=== PATIENT | female | born 1950 | race Asian ===

== ENCOUNTER 2017-03-06 08:45 | Day surgery (SDC) | payer OTHER ==
[2017-03-05 17:53] VITALS: BMI 30.2
[~2017-03-06] VITALS: Ht 157.5 cm; Wt 73.0 kg
[2017-03-06] VITALS (8 sets, daily range): BP systolic 80–165; BP diastolic 45–83; PULSE 56–86; RESP 14–24; Ht 157.5 cm; Wt 73.0 kg
--- NOTE | 2017-03-06 07:59 | HP ---
DATE OF ADMISSION: 03/06/2017 HISTORY OF PRESENT ILLNESS: This 66-year-old patient is admitted for elective cataract surgery of t he right eye. The patient has had progressive deterioration of vision in that eye over the past few years. The patient has a prior history of diabetic retinopathy treated with laser therapy while in the [facility]. The patient denies other history of eye disease or injury. The patient also has a history of systemic hypertension and hypercholesterolemia. CURRENT MEDICATIONS: Include 1. Gabapentin. 2. Glipizide. 3. Allopurinol. 4. Aspirin. 5. Carvedilol. 6. Atorvastatin. 7. Januvia. 7. Losartan. The aspirin was discontinued 1 week prior to surgery. ALLERGIES: THERE ARE NO KNOWN ALLERGIES. PHYSICAL EXAMINATION: Visual acuity with best correction is 20/60 in the right eye and 20/50 in the left eye. Slit lamp examination reveals anterior cortical and nuclear sclerotic cataracts present in both eyes. Applanation tonometry is 12 mmHg. Examination of the retina reveals background diabe tic retinopathy and evidence of prior peripheral retinal laser therapy. DIAGNOSIS: Cataract, right eye. PLAN: Cataract extraction with lens implant, right eye. The risks and alternatives to the surgery have been discussed with the patient as well as the hope for improvement of visual acuity leading to greater ability to perform activities of daily living. The patient understands this and agrees to proceed with the surgery. Dictated By: SWETA CRESPO/CHANTAL Conf#: [id number] DID#: [id number]
[~2017-03-06 08:45] MED LIST: AMIT25TA9 PO; ATOR40TA68 PO; CARV6.25 PO; GABA300C PO; GLIP-95 PO; LOSA50TA6 PO; MELO-110 PO; SITA50TA2 PO
[2017-03-06] MEDS ORDERED: TROPICAMIDE 1% 2 ML OPH RIGHT EYE SCH (09:30)
[2017-03-06] MEDS ORDERED: CYCLOPENTOLATE/PHENYLEPH 2 ML OPH RIGHT EYE SCH (09:30)
[2017-03-06] MEDS ORDERED: DICLOFENAC 0.1% 2.5 ML OPH RIGHT EYE SCH (09:30)
[2017-03-06] MEDS ORDERED: CIPROFLOXACIN 0.3% 2.5 ML OPH RIGHT EYE SCH (09:30)
[2017-03-06] MEDS ORDERED: ATOR20TA38 PO (09:36)
[2017-03-06] MEDS ORDERED: LOSA100T7 PO (09:36)
[2017-03-06] MEDS ORDERED: ASPI81TA3 PO (09:37)
[2017-03-06] MEDS ORDERED: ALLO100T PO (09:37)
[2017-03-06] MEDS ORDERED: SITA100T8 PO (09:37)
[2017-03-06] MEDS ORDERED: MECL-77 PO (09:38)
[2017-03-06] MEDS ORDERED: GABA400C14 PO (09:38)
[2017-03-06] MEDS ORDERED: CEFAZOLIN 1 GM INJ ONE (10:14)
[2017-03-06] MEDS ORDERED: LIDOCAINE 4% (MPF) 5 ML INJ ONE (10:14)
[2017-03-06] MEDS ORDERED: DEXAMETHASONE 4 MG/ML 1 ML INJ ONE (10:15)
[2017-03-06] MEDS ORDERED: EPINEPHrine 1 MG INJ ONE (10:15)
[2017-03-06] MEDS ORDERED: GENTAMICIN 80 MG INJ ONE (10:15)
[2017-03-06] MEDS ORDERED: CARBACHOL 0.01% 1.5 ML OPH INJ ONE ×2 (10:15→12:14)
[2017-03-06] MEDS ORDERED: HYALURONATE/CHONDROITIN 1ML OPH INJ ONE (10:16)
[2017-03-06] MEDS ORDERED: PROPOFOL 20 ML ONE (11:28)
[2017-03-06] MEDS ORDERED: MIDAZOLAM 1 MG/ML 2 ML INJ IV PRN (11:30)
[2017-03-06] MEDS ORDERED: METOCLOPRAMIDE 10 MG INJ IV PRN (11:30)
[2017-03-06] MEDS ORDERED: MEPERIDINE 25 MG INJ IV PRN (11:30)
[2017-03-06] MEDS ORDERED: DIPHENHYDRAMINE 50 MG INJ IV PRN (11:30)
[2017-03-06] MEDS ORDERED: ONDANSETRON 4 MG INJ IV PRN (11:30)
[2017-03-06] MEDS ORDERED: FENTAnyl 50 MCG/ML VIAL IV PRN ×2 (11:30)
[2017-03-06] MEDS ORDERED: hydrALAzine 20 MG INJ ONE (11:53)
--- NOTE | 2017-03-06 12:46 | OPR ---
DATE OF OPERATION: 03/06/2017 PREOPERATIVE DIAGNOSIS: Cataract, right eye. POSTOPERATIVE DIAGNOSIS: Cataract, right eye. SURGEON: Sweta Harkins MD ANESTHESIA: Local standby. ANESTHESIOLOGIST: Dr. Loo OPERATION: Phacoemulsification with posterior chamber intraocular lens implant, right eye. PROCEDURE: The patient was brought to the operating room and placed on the table with an IV in plac e and the patient attached to an lap welder. Oxygen was given via face mask. After some intravenous sedation was administered, local anesthesia was given using Xylocaine 2% with epinephrine, mixed with Marcaine 0.5%. This was given in a lid block and retrobulbar injection. The patient was then prepped and draped in the usual sterile manner. A wire lid speculum was inserted between the lids of the right eye. A Superblade was used to enter t he anterior chamber at the corneoscleral limbus at the 10:30 o'clock position. A separate incision w as made using a 3.0-mm keratome which entered the corneoscleral junction at the 12 o'clock position. Through this 3-mm opening, an irrigating cystitome was introduced into the anterior chamber. The ch suhas was filled with Viscoat and an anterior capsulotomy was performed. Balanced salt solution was then used for hydrodissection of the lens. A phacoemulsification handpiece was then brought into th e field and introduced into the anterior chamber. The lens nucleus was emulsified using a deep groov e and cracking the nucleus into quadrants. Following this, each quadrant was aspirated and emulsifie d at the pupillary margin. After this was completed, the irrigation/aspiration handpiece was brought to the field, introduced i nto the posterior chamber, and the lens cortical material was removed. When this was completed, scooby tional Viscoat was injected into the anterior and posterior chambers. The 3-mm opening had its internal lips enlarged, and then the posterior chamber intraocular lens kelly suring 18.5 diopters ([employer] Model LI61AO) was then injected into the posterior chamber using the lens injector system. After the leading haptic was introduced into the capsular b ag and the lens optic was present in the center of the eye, the injector was removed and the trailin g haptic was grasped with non-toothed forceps and introduced into the capsular fold superiorly. A Si nskey hook was then used to rotate the intraocular lens so that the lips were oriented in the horizo ntal meridian. One 10-0 nylon suture was placed across the wound. Prior to tying, the irrigation/aspiration handpiece was reintroduced into the anterior chamber to re move the Viscoat. Miochol was instilled to constrict the pupil, and then the 10-0 nylon suture was t ied. The ends were cut short and then the knot was buried. Then, 0.5 mL of dexamethasone and 0.5 mL of Ancef were injected into the sub-Tenon space in the infe rior fornix. Ciloxan drops were then placed on the surface of the eye. The speculum was removed and a patch was applied. The patient then left the operating room in satisfactory condition. Dictated By: SWETA CRESPO/CHANTAL Conf#: [id number] DID#: [id number]
== END 2017-03-06 17:38 | disposition home or self-care (01) ==
LOC: SDS 08:45
PROVIDERS: ATTEND Ophthalmology
DX: H25.11 Age-related nuclear cataract, right eye (principal); I10 Essential (primary) hypertension; E11.9 Type 2 diabetes mellitus without complications; E78.5 Hyperlipidemia, unspecified; E66.9 Obesity, unspecified; Z68.29 Body mass index [BMI] 29.0-29.9, adult
CPT/HCPCS: 66984; 82962; J0171; J0360; J0690; J1100; J1580; J2405; J3010; V2632; Z7512; Z7610; J1200